=== PATIENT | male | born 1960 | race Caucasian/White ===

== ENCOUNTER 2017-05-07 12:29 | Inpatient (IN) | payer OTHER ==
[~2017-05-07] VITALS: Ht 188 cm; Wt 119.3 kg
--- OUTSIDE RECORDS SUMMARY | ~2017-05-07 | XMS ---
Demographics + + + | Address | [address] | | | [address] | | | [place] [address] | + + + | Preferred Language | Unknown | + + + | Marital Status | Unknown | + + + | Scientology Affiliation | Unknown | + + + | Race | Unknown | + + + | Ethnic Group | Unknown | + + + Author + + + | Author | [facility] | + + + | Organization | [facility] | + + + | Address | [address] | | | [place] [address] | + + + | Phone | | + + + Care Team Providers + + + + | Care Raw Juice Weigher Name | Role | Phone | + + + + Unavailable | Unavailable | + + + + PROBLEMS +---------+ + + +--------+ + + | Type | Condition | ICD9-CM | [id number] | Onset | Condition | SNOMED | | | | Code | Code | Dates | Status | Code | +---------+ + + +--------+ + + | Problem | Hyperlipid | | E78.5 | | Active | [id number] | | | emia | | | | | | +---------+ + + +--------+ + + | Problem | Type 2 | E11.40 | | | Active | [id number] | | | diabetes | | | [...] | | I10 | | Active | 29716820 | | | (primary) | | | [...]
--- OUTSIDE RECORDS SUMMARY | ~2017-05-07 | XMS ---
Demographics + + + | Address | [address] | | | [address] | | | [place] [address] | + + + | Preferred Language | Unknown | + + + | Marital Status | Unknown | + + + | Samaritan Affiliation | Unknown | + + + | Race | Unknown | + + + | Ethnic Group | Unknown | + + + Author + + + | Author | [facility] | + + + | Organization | [facility] | + + + | Address | [address] | | | [place] [address] | + + + | Phone | | + + + Care Team Providers + + + + | Care Ticker Maintainer Name | Role | Phone | + + + + Unavailable | Unavailable | + + + + PROBLEMS +---------+ + + +--------+ + + | Type | Condition | ICD9-CM | [id number] | Onset | Condition | SNOMED | | | | Code | Code | Dates | Status | Code | +---------+ + + +--------+ + + | Problem | Hyperlipid | | E78.5 | | Active | [id number] | | | emia | | | | | | +---------+ + + +--------+ + + | Problem | Type 2 | E11.40 | | | Active | [id number] | | | diabetes | | | [...] | | I10 | | Active | 23216098 | | | (primary) | | | [...]
--- OUTSIDE RECORDS SUMMARY | ~2017-05-07 | XMS ---
Demographics + + + | Address | [address] | | | [address] | | | [place] [address] | + + + | Preferred Language | Unknown | + + + | Marital Status | Unknown | + + + | Latter-Day Affiliation | Unknown | + + + | Race | Unknown | + + + | Ethnic Group | Unknown | + + + Author + + + | Author | [facility] | + + + | Organization | [facility] | + + + | Address | [address] | | | [place] [address] | + + + | Phone | | + + + Care Team Providers + + + + | Care Ceramic Tile Installer Name | Role | Phone | + + + + Unavailable | Unavailable | + + + + PROBLEMS +---------+ + + +--------+ + + | Type | Condition | ICD9-CM | [id number]-WN | Onset | Condition | SNOMED | | | | Code | Code | Dates | Status | Code | +---------+ + + +--------+ + + | 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 | | | Active | [id number] | | | erotic | | | | | | | | cardiovasc | | | | | | | | ular | | | | | | | | disease | | | | | | +---------+ + + +--------+ + + | Problem | Hyperlipid | | E78.5 | | Active | 12339696 | | | emia | | | | | | +---------+ + + +--------+ + + | Problem | Type 2 | E11.40 | | | Active | 1334760864 | | | diabetes | | | [...] | | I10 | | Active | 19490379 | | | (primary) | | | | | | | | hypertensi | | | | | | | | on | | | | | | +---------+ + + +--------+ + + ALLERGIES No Information SOCIAL HISTORY Never Assessed PLAN OF CARE VITAL SIGNS MEDICATIONS Unknown Medications RESULTS No Results PROCEDURES No Known procedures IMMUNIZATIONS No Known Immunizations MEDICAL (GENERAL) HISTORY + + + + | Type | Description | Date | + + + + | Medical History | copd | | + + + + | Medical History | afib | | + + + + | Medical History | chronic back pain | | + + + + | Medical History | neuropathy | | + + + + | Medical History | conjestive heart faiulue | | + + + + | Medical History | diabetes | | + + + + | Medical History | diabetic neuropathy | | + + + + | Hospitalization History | conjestive heart failure | apr 2016 | + + + + | Hospitalization History | pneumonia | mar 2016 | + + + + | Hospitalization History | ER visit for high blood | Dec 08 2016 | | | pressure; HR was High. | | + + + +"
--- OUTSIDE RECORDS SUMMARY | ~2017-05-07 | XMS ---
Demographics + + + | Address | [address] | | | [address] | | | [place] [address] | + + + | Preferred Language | Unknown | + + + | Marital Status | Unknown | + + + | Mu-Ism Affiliation | Unknown | + + + | Race | Unknown | + + + | Ethnic Group | Unknown | + + + Author + + + | Author | [facility] | + + + | Organization | [facility] | + + + | Address | [address] | | | [place] [address] | + + + | Phone | | + + + Care Team Providers + + + + | Care Us Marketing Director Name | Role | Phone | + + + + Unavailable | Unavailable | + + + + PROBLEMS +---------+ + + +--------+ + + | Type | Condition | ICD9-CM | [id number] | Onset | Condition | SNOMED | | | | Code | Code | Dates | Status | Code | +---------+ + + +--------+ + + | Problem | Hyperlipid | | E78.5 | | Active | [id number] | | | emia | | | | | | +---------+ + + +--------+ + + | Problem | Type 2 | E11.40 | | | Active | 1239071194 | | | diabetes | | | [...] | | I10 | | Active | 78349047 | | | (primary) | | | | | | | | hypertensi | | | | | | | | on | | | | | | +---------+ + + +--------+ + + ALLERGIES Unknown Allergies SOCIAL HISTORY No smoking Hx information available PLAN OF CARE VITAL SIGNS MEDICATIONS + + +---------+ + + + +--------+ | Medicati | Instruct | Dosage | Frequenc | Start | End Date | Duration | Status | | on | ions | | y | Date | | | | + + +---------+ + + + +--------+ | Pravasta | orally | one tab | 24h | 07 Gomez, | | 30 | Active | | tin 20 | daily | | | 2017 | | | | | mg | | | | | | | | + + +---------+ + + + +--------+ RESULTS No Results PROCEDURES No Known procedures IMMUNIZATIONS No Known Immunizations"
--- OUTSIDE RECORDS SUMMARY | ~2017-05-07 | XMS ---
Demographics + + + | Address | [address] | | | [address] | | | [place] [address] | + + + | Preferred Language | Unknown | + + + | Marital Status | Unknown | + + + | Adventism Affiliation | Unknown | + + + | Race | Unknown | + + + | Ethnic Group | Unknown | + + + Author + + + | Author | [facility] | + + + | Organization | [facility] | + + + | Address | [address] | | | [place] [address] | + + + | Phone | | + + + Care Team Providers + + + + | Care Bounty Hunter Name | Role | Phone | + + + + Unavailable | Unavailable | + + + + PROBLEMS +---------+ + + +--------+ + + | Type | Condition | ICD9-CM | ZSU26-MH | Onset | Condition | SNOMED | | | | Code | Code | Dates | Status | Code | +---------+ + + +--------+ + + | Problem | Hypotensiv | I95.9 | | | Active | [id number] | | | e episode | | | | | | +---------+ + + +--------+ + + | 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 | | | Active | 16990238 | | | erotic | | | | | | | | cardiovasc | | | | | | | | ular | | | | | | | | disease | | | | | | +---------+ + + +--------+ + + | Problem | Essential | | I10 | | Active | 17662819 | | | (primary) | | | | | | | | hypertensi | | | | | | | | on | | | | | | +---------+ + + +--------+ + + | Problem | Hyperlipid | | E78.5 | | Active | 63145433 | | | emia | | | | | | +---------+ + + +--------+ + + | Problem | Type 2 | E11.40 | | | Active | [id number] | | | diabetes | | | | | 107 | | | mellitus | | | | | | | | with | | | | | | | | diabetic | | | | | | | | neuropathy | | | | | | +---------+ + + +--------+ + + ALLERGIES No Information SOCIAL HISTORY Never Assessed PLAN OF CARE + +---------+ | Activity | Details | + +---------+ +---+ | | +---+ + + + | Follow Up | 2 Weeks Reason:null | + + + VITAL SIGNS MEDICATIONS + + + + + + + +--------+ | Medicati | Instruct | Dosage | Frequenc | Start | End Date | Duration | Status | | on | ions | | y | Date | | | | + + + + + + + +--------+ | Gabapent | Orally | 1 tablet | 8h | | | 30 | Active | | in 800 | Three | | | | | | | | MG | times a | | | | | | | | | day | | | | | | | + + + + + + + +--------+ | Spironol | Orally | 1 tablet | 12h | | | 30 | Active | | actone | Twice a | | | | | | | | 25 MG | day | | | | | | | + + + + + + + +--------+ | GlipiZID | Orally | 1 tablet | 12h | 07 Sep, | | 30 | Active | | E 5 MG | bid | | | 2017 | | day(s) | | + + + + + + + +--------+ | Carvedil | Orally | 1 tab | 12h | | | 30 | Active | | ol 25 MG | bid | | | | | | | + + + + + + + +--------+ | Losartan | Orally | 1 tablet | 24h | | | 30 | Active | | | Once a | | | | | | | | Potassiu | day | | | | | | | | m 100 MG | | | | | | | | + + + + + + + +--------+ | Terbinaf | Orally | 1 tablet | 24h | | | | Active | | ine HCl | Once a | | | | | | | | 250 MG | day | | | | | | | + + + + + + + +--------+ | Pacerone | Orally | 1 tablet | 24h | | | | Active | | 400 MG | Once a | | | | | | | | | day | | | | | | | + + + + + + + +--------+ | Pepto-Bi | | | | | | | Active | | smol | | | | | | | | + + + + + + + +--------+ | Potassiu | Orally | 1 tablet | 12h | | | 30 | Active | | m | Twice a | with | | | | | | | Chloride | day | food | | | | | | | 10 MEQ | | | | | | | | + + + + + + + +--------+ | Amlodipi | Orally | 1 tablet | 24h | | | 30 | Active | | ne | Once a | | | | | | | | Besylate | day | | | | | | | | 5 MG | | | | | | | | + + + + + + + +--------+ | Pravasta | orally | one tab | 24h | 07 Gomez, | | 30 | Active | | tin 20 | daily | | | 2017 | | | | | mg | | | | | | | | + + + + + + + +--------+ | Furosemi | Orally | 1 tablet | 24h | | | 30 | Active | | de 40 MG | Once a | | | | | | | | | day | | | | | | | + + + + + + + +--------+ | Lomotil | Orally q | 1 tablet | | 19 November, | | 5d | Active | | 2.5-0.02 | 4hr prn | as | | 2016 | | | | | 5 MG | | needed | | | | | | | | diarrhea | | | | | | | + + + + + + + +--------+ | Eliquis | Orally q | 1 tablet | | | | 30 | Active | | 5 mg | day | | | | | | | + + + + + + + +--------+ RESULTS No Results [...]
--- OUTSIDE RECORDS SUMMARY | ~2017-05-07 | XMS ---
Demographics + + + | Address | [address] | | | [address] | | | [place] [address] | + + + | Preferred Language | Unknown | + + + | Marital Status | Unknown | + + + | Sikh Affiliation | Unknown | + + + | Race | Unknown | + + + | Ethnic Group | Unknown | + + + Author + + + | Author | [facility] | + + + | Organization | [facility] | + + + | Address | [address] | | | [place] [address] | + + + | Phone | | + + + Care Team Providers + + + + | Care Occupational Therapy Department Chair Name | Role | Phone | + + + + Unavailable | Unavailable | + + + + PROBLEMS +---------+ + + +--------+ + + | Type | Condition | ICD9-CM | [id number] | Onset | Condition | SNOMED | | | | Code | Code | Dates | Status | Code | +---------+ + + +--------+ + + | 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 | | | Active | [id number] | | | erotic | | | | | | | | cardiovasc | | | | | | | | ular | | | | | | | | disease | | | | | | +---------+ + + +--------+ + + | Problem | Hyperlipid | | E78.5 | | Active | 76982829 | | | emia | | | | | | +---------+ + + +--------+ + + | Problem | Type 2 | E11.40 | | | Active | [id number] | | | diabetes | | | [...] | | I10 | | Active | 80229941 | | | (primary) | | | | | | | | hypertensi | | | | | | | | on | | | | | | +---------+ + + +--------+ + + ALLERGIES No Known Allergies SOCIAL HISTORY Never Assessed PLAN OF CARE + +---------+ | Activity | Details | + +---------+ +---+ | | +---+ + + + | Follow Up | 2 Months Reason:null | + + + VITAL SIGNS + + + + | Height | 72 in | 2017-03-20 | + + + + | Weight | 269.8 lbs | 2017-03-20 | + + + + | BMI | 36.59 kg/m2 | 2017-03-20 | + + + + | Temperature | 97.8 degrees Fahrenheit | 2017-03-20 | + + + + | Heart Rate | 64 /min | 2017-03-20 | + + + + | Blood pressure systolic | 149 mm Hg | 2017-03-20 | + + + + | Blood pressure diastolic | 76 mm Hg | 2017-03-20 | + + + + MEDICATIONS + + + + + + [...] orally | one tab | 24h | Dec, | | 30 | Active | | [...] + + + + + +--------+ | Hydrocod | Orally | 5 ml as | 6h | | | | Active | | one-Acet | every 6 | needed | | | | | | | aminophe | hrs | | | | | | | | n 10-325 | | | | | | | | | MG | | | | | | [...] + + + + + +--------+ | Metformi | Orally | 1 tablet | 12h | | | 30 | Active | | n HCl | Twice a | with | | | | | | | 1000 MG | day | meals | | | | | | + [...]
--- OUTSIDE RECORDS SUMMARY | ~2017-05-07 | XMS ---
Demographics + + + | Address | [address] | | | [address] | | | [place] [address] | + + + | Preferred Language | Unknown | + + + | Marital Status | Unknown | + + + | Synagogue Affiliation | Unknown | + + + | Race | Unknown | + + + | Ethnic Group | Unknown | + + + Author + + + | Author | [facility] | + + + | Organization | [facility] | + + + | Address | [address] | | | [place] [address] | + + + | Phone | | + + + Care Team Providers + + + + | Care Guide Cruise Name | Role | Phone | + + + + Unavailable | Unavailable | + + + + PROBLEMS +---------+ + + +--------+ + + | Type | Condition | ICD9-CM | [id number] | Onset | Condition | SNOMED | | | | Code | Code | Dates | Status | Code | +---------+ + + +--------+ + + | Problem | Hyperlipid | | E78.5 | | Active | [id number] | | | emia | | | | | | +---------+ + + +--------+ + + | Problem | Type 2 | E11.40 | | | Active | [id number] | | | diabetes | | | [...] | | I10 | | Active | 56121355 | | | (primary) | | | | | | | | hypertensi | | | | | | | | on | | | | | | +---------+ + + +--------+ + + ALLERGIES + + + + +---------+ | Substance | Reaction | Event Type | Date | Status | + + + + +---------+ | DerrickKLaura. | Unknown | Non Drug | Dec, | Unknown | | | | Allergy | | | + + + + +---------+ SOCIAL HISTORY No smoking Hx information available PLAN OF CARE + +---------+ | Activity | Details | + +---------+ +---+ | | +---+ + + + | Follow Up | 3 Months Reason:null | + + + VITAL SIGNS + + + + | Height | 72 in | 2016-12-18 | + + + + | Weight | 267.4 lbs | 2016-12-18 | + + + + | BMI | 36.26 kg/m2 | 2016-12-18 | + + + + | Temperature | 97.9 degrees Fahrenheit | 2016-12-18 | + + + + | Heart Rate | 65 /min | 2016-12-18 | + + + + | Blood pressure systolic | 150 mm Hg | 2016-12-18 | + + + + | Blood pressure diastolic | 79 mm Hg | 2016-12-18 | + + + + MEDICATIONS + [...] 1 tablet | 12h | | | | Active | | actone | Twice a | | | | | | | | 25 MG | day | | | | | | | + + + + + + + +--------+ | Eliquis | | 1 tablet | | | | | Active | | 5 mg | | | | | | | | + + + + + + + +--------+ | Carvedil | | | | | | | Active | | ol 25 MG | | | | | | [...] | | | | Active | | de 40 MG [...] | | | | Active | | ne | Once [...] | | | | Active | | | Once a [...] | 4hr prn | as | | 2017 | | | | | 5 MG [...] + + +--------+ RESULTS No Results PROCEDURES + + + + + | Procedure | Date Ordered | Related Diagnosis | Body Site | + + + + + | Est Level III | December 18, 2016 | | | | Intermediate | | | | + + + + + IMMUNIZATIONS No Known Immunizations"
--- OUTSIDE RECORDS SUMMARY | ~2017-05-07 | XMS ---
Demographics + + + | Address | [address] | | | [address] | | | [place] [address] | + + + | Preferred Language | Unknown | + + + | Marital Status | Unknown | + + + | Gnosticism Affiliation | Unknown | + + + | Race | Unknown | + + + | Ethnic Group | Unknown | + + + Author + + + | Author | [facility] | + + + | Organization | [facility] | + + + | Address | [address] | | | [place] [address] | + + + | Phone | | + + + Care Team Providers + + + + | Care Can Reconditioner Name | Role | Phone | + + + + Unavailable | Unavailable | + + + + PROBLEMS +---------+ + + +--------+ + + | Type | Condition | ICD9-CM | [id number] | Onset | Condition | SNOMED | | | | Code | Code | Dates | Status | Code | +---------+ + + +--------+ + + | Problem | Hyperlipid | | E78.5 | | Active | [id number] | | | emia | | | | | | +---------+ + + +--------+ + + | Problem | Type 2 | E11.40 | | | Active | [id number] | | | diabetes | | | [...] | | I10 | | Active | 56117852 | | | (primary) | | | [...]
--- OUTSIDE RECORDS SUMMARY | ~2017-05-07 | XMS ---
Demographics + + + | Address | [address] | | | [address] | | | [place] [address] | + + + | Preferred Language | Unknown | + + + | Marital Status | Unknown | + + + | Jehovah'S Witness Affiliation | Unknown | + + + | Race | Unknown | + + + | Ethnic Group | Unknown | + + + Author + + + | Author | [facility] | + + + | Organization | [facility] | + + + | Address | [address] | | | [place] [address] | + + + | Phone | | + + + Care Team Providers + + + + | Care Electromechanical Inspector Name | Role | Phone | + + + + Unavailable | Unavailable | + + + + PROBLEMS +---------+ + + +--------+ + + | Type | Condition | ICD9-CM | KGO90-FP | Onset | Condition | SNOMED | | | | Code | Code | Dates | Status | Code | +---------+ + + +--------+ + + | 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 | | | Active | 34152469 | | | erotic | | | | | | | | cardiovasc | | | | | | | | ular | | | | | | | | disease | | | | | | +---------+ + + +--------+ + + | Problem | Hyperlipid | | E78.5 | | Active | 60108834 | | | emia | | | | | | +---------+ + + +--------+ + + | Problem | Type 2 | E11.40 | | | Active | 2815700303 | | | diabetes | | | [...] | | I10 | | Active | 47316366 | | | (primary) | | | [...]
--- OUTSIDE RECORDS SUMMARY | ~2017-05-07 | XMS ---
Demographics + + + | Address | [address] | | | [address] | | | [place] [address] | + + + | Preferred Language | Unknown | + + + | Marital Status | Unknown | + + + | Episcopal Affiliation | Unknown | + + + | Race | Unknown | + + + | Ethnic Group | Unknown | + + + Author + + + | Author | [facility] | + + + | Organization | [facility] | + + + | Address | [address] | | | [place] [address] | + + + | Phone | | + + + Care Team Providers + + + + | Care Aircraft Refueller Name | Role | Phone | + + + + Unavailable | Unavailable | + + + + PROBLEMS +---------+ + + +--------+ + + | Type | Condition | ICD9-CM | KWL50-KI | Onset | Condition | SNOMED | | | | Code | Code | Dates | Status | Code | +---------+ + + +--------+ + + | Problem | Hyperlipid | | E78.5 | | Active | 62188138 | | | emia | | | | | | +---------+ + + +--------+ + + | Problem | Type 2 | E11.40 | | | Active | 6606892095 | | | diabetes | | | [...] | | I10 | | Active | 52926042 | | | (primary) | | | [...]
[~2017-05-07 12:29] MED LIST: ALDACTONE25 MG PO; COREG25 MG PO; COZAAR100 MG PO; ELIQUIS5 MG PO; GABAPENTIN800 MG PO; GLUCOPHAGE500 MG PO; HYDROCODON-ACE1 EAC8 PO; KLOR-CON SPRIN10 MEQ PO; LASIX20 MG PO; NORVASC5 MG PO; PACERONE400 MG PO; PROMETHAZINE HC25 M1 PO
[2017-05-07] MEDS ORDERED: CARBIDOPA-LEVO1 EACH PO (12:56)
[2017-05-07] MEDS ORDERED: PRAVACHOL20 MG PO (12:57)
[2017-05-07] MEDS ORDERED: ROBAXIN500 MG PO (13:00)
--- NOTE | 2017-05-07 17:22 | EKG ---
[facility] [address] [facility] [place] [address] Signed Atrial fibrillation with rapid ventricular response Right bundle branch block Inferior infarct , age undetermined Abnormal ECG When compared with ECG of 08-DEC-2016 08:26, Inferior infarct is now present T wave inversion less evident in Anterior leads Confirmed by QUINTON SAUCEDO MD ([id number]) on 05/07/2017 5:22:19 PM Electronically Signed By: QUINTON SAUCEDO MD 05/07/17 1722 PATIENT NAME: CHAVA SHANE MARYSOL Electrocardiogram DATE OF : 58 PHYSICIAN: QUINTON SAUCDEO MD REPORT #: [id number] REPORT IS CONFIDENTIAL AND NOT TO BE RELEASED WITHOUT AUTHORIZATION
[2017-05-07] MEDS ORDERED: GLUCOTROL5 MG PO (17:43)
--- NOTE | 2017-05-08 16:03 | EKG ---
[facility] [address] [facility] [place] [address] Signed Atrial fibrillation Left axis deviation Right bundle branch block Abnormal ECG When compared with ECG of 07-MAY-2017 12:38, No significant change was found Confirmed by QUINTON SAUCEDO MD ([id number]) on 05/08/2017 4:02:44 PM Electronically Signed By: QUINTON SAUCEDO MD 05/08/17 1603 PATIENT NAME: CHAVA SHANE Electrocardiogram DATE OF : 58 PHYSICIAN: QUINTON SAUCEDO MD REPORT #: [id number] REPORT IS CONFIDENTIAL AND NOT TO BE RELEASED WITHOUT AUTHORIZATION
[2017-05-11] MEDS ORDERED: CEFPODOXIME PR200 MG PO (11:40)
[2017-05-11] MEDS ORDERED: CARDIZEM CD180 MG PO (11:41)
== END 2017-05-11 13:06 | disposition home or self-care (01) | DRG 193 ==
LOC: ED 12:29 → MS 14:46
PROVIDERS: ADMIT Internal Medicine
DX: J13 Pneumonia due to Streptococcus pneumoniae (principal); J96.01 Acute respiratory failure with hypoxia; J44.0 Chronic obstructive pulmonary disease with (acute) lower respiratory infection; I48.0 Paroxysmal atrial fibrillation; I50.9 Heart failure, unspecified; E11.42 Type 2 diabetes mellitus with diabetic polyneuropathy; G25.81 Restless legs syndrome; I25.10 Atherosclerotic heart disease of native coronary artery without angina pectoris; I95.9 Hypotension, unspecified
CPT/HCPCS: 36415; 71010; 80048; 80053; 83605; 83735; 84484; 85025; 87040; 93005; 93010; 94640; 94761; 94762; 96374; 96375; 99285; J0456; J0696; J2405; J7030

== ENCOUNTER 2017-08-22 02:04 | Emergency (ER) | payer OTHER ==
[~2017-08-22] VITALS: Ht 188 cm; Wt 121.6 kg
[~2017-08-22 02:04] MED LIST changes: +CARBIDOPA-LEVO1 EACH PO; +CARDIZEM CD180 MG PO; +CEFPODOXIME PR200 MG PO; +GLUCOTROL5 MG PO; -LASIX20 MG PO; +LASIX40 MG PO; +PRAVACHOL20 MG PO; +ROBAXIN500 MG PO
[2017-08-22] MEDS ORDERED: NORCO 5-325 TA1 EACH PO (02:49)
[2017-08-22] MEDS ORDERED: AMLODIPINE BESYL5 MG PO (02:50)
[2017-08-22] MEDS ORDERED: POTASSIUM CHLO20 ME1 PO (03:53)
--- NOTE | 2017-08-23 17:48 | EKG ---
[facility] [address] [facility] [place] [address] Signed Atrial fibrillation with rapid ventricular response with premature ventricular or aberrantly conducted complexes Left axis deviation Right bundle branch block Abnormal ECG When compared with ECG of 08-MAY-2017 07:02, No significant change was found Confirmed by TAWANDA CELESTIN MD ([id number]) on 08/23/2017 5:48:11 PM Electronically Signed By: TAWANDA CELESTIN MD 08/23/17 1748 PATIENT NAME: SHANECHAVA MARYSOL Electrocardiogram DATE OF : 58 PHYSICIAN: TAWANDA CELESTIN MD REPORT #: [id number] REPORT IS CONFIDENTIAL AND NOT TO BE RELEASED WITHOUT AUTHORIZATION
[2017-11-11] MEDS ORDERED: COUMADIN2.5 MG PO (14:58)
[2017-11-11] MEDS ORDERED: FLOMAX0.4 MG PO (15:18)
[2017-11-11] MEDS ORDERED: ZESTRIL5 MG PO (15:18)
== END 2017-08-22 05:11 | disposition home or self-care (01) ==
LOC: ED 02:04
DX: J20.9 Acute bronchitis, unspecified (principal); I48.91 Unspecified atrial fibrillation; I11.0 Hypertensive heart disease with heart failure; I50.9 Heart failure, unspecified; J44.9 Chronic obstructive pulmonary disease, unspecified; E87.6 Hypokalemia; E11.40 Type 2 diabetes mellitus with diabetic neuropathy, unspecified; Z87.891 Personal history of nicotine dependence; Z79.899 Other long term (current) drug therapy; Z79.82 Long term (current) use of aspirin
CPT/HCPCS: 71046; 80053; 83880; 84484; 85025; 85379; 87502; 93005; 93010; 96365; 96375; 99284; J2930; J3480

== ENCOUNTER 2017-09-10 06:54 | Day surgery (SDC) | payer OTHER ==
[~2017-09-10] VITALS: Ht 188 cm; Wt 118.4 kg
[~2017-09-10 06:54] MED LIST changes: +AMLODIPINE BESYL5 MG PO; +NORCO 5-325 TA1 EACH PO; +POTASSIUM CHLO20 ME1 PO
--- NOTE | 2017-09-10 09:21 | NUR ---
[facility] SLEEPY WITH NO C/O'S. ABD SOFT. 0900 PT AWAKE SIPPING ON WATER. BLOOD SUGAR 94. 0910 DC INSTRUCTIONS GIVEN. PT TO ROOM 14 IN TO AWAIT RIDE HOME.
--- NOTE | 2017-09-10 13:31 | NUR ---
PT ALERT, ORIENTED AND SUPPORTED BY HIS . STAFF SHARED WITH ME THAT PT IS UNHAPPY TO BE HERE, AND SOMEWHAT DIFFICULT TO DEAL WITH. PREP WAS NOT PLEASANT AND STRUGGLING TO SEE WHY HE IS HERE. AFTER A LITTLE DISCUSSION PT I DISCOVERED PT REALLY WAS JUST SCARED. EXPLAINED MORE IN DETAIL WHAT TO EXPECT AND RN DANIELLE CAME IN AND WAS ABLE TO ANSWER SOME QUESTINS HE HAD. MADE A HUGE DIFFERENCE IN HIM, AND PT REQUESTED PRAYER. BEFORE I LEFT,PT WAS LAUGHING AND SMILING A LITTLE BIT ANYWAY.
--- NOTE | 2017-09-11 07:25 | EKG ---
[facility] [address] [facility] [place] [address] Signed Sinus bradycardia Left axis deviation Right bundle branch block Abnormal ECG When compared with ECG of 22-AUG-2017 02:09, Sinus rhythm has replaced Atrial fibrillation Vent. rate has decreased BY 64 BPM T wave inversion no longer evident in Anterior leads Confirmed by QUINTON SAUCEDO MD ([id number]) on 09/11/2017 7:25:13 AM Electronically Signed By: QUINTON SAUCEDO MD 09/11/17 0725 PATIENT NAME: SHANECHAVA MARYSOL Electrocardiogram DATE OF : 58 PHYSICIAN: QUINTON SAUCEDO MD REPORT #: [id number] REPORT IS CONFIDENTIAL AND NOT TO BE RELEASED WITHOUT AUTHORIZATION
--- NOTE | 2017-09-19 08:29 | OR ---
[facility] [address], [place] [address] Signed DATE OF OPERATION: 09/10/2017 SURGEON: Teofilo Iverson MD PREOPERATIVE DIAGNOSES: 1. Rectal bleeding. 2. Guaiac-positive stool. 3. Anticoagulation. POSTOPERATIVE DIAGNOSES: 1. Moderate external hemorrhoids. 2. Minimal internal hemorrhoids. 3. A 5 mm polyp, proximal transverse colon. 4. A 5 mm polyp at 30 cm. 5. A 3 mm polyp at 18 cm. PROCEDURE: Colonoscopy with hot biopsy. ESTIMATED BLOOD LOSS: None. INDICATIONS: Kavin is a 57-year-old, obese, diabetic gentleman, who has had trouble with rectal bleeding. He has been on Eliquis because of his paroxysmal atrial fibrillation. To his knowledge, there is no pain around the anus or any swelling around the anus. Of course, the stool came back guaiac-positive. He had been asked to see me for a colonoscopy. He said he has never had a previous colonoscopy. There is no family history of colon cancer or polyps. In addition, he is awaiting his study for his sleep apnea and from what we can see today he is going to need a CPAP mask. He has also had a previous OH with congestive heart failure, hypertension, and his paroxysmal atrial fibrillation. 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 In the meantime, he said he is having angina twice a week. In the office, I gave him a pamphlet on colonoscopy and we looked at that together along with the risks including, but not limited to, gas bloating, crampy abdominal pain, bleeding, perforation, requiring surgery, and missed diagnosis. We also discussed the need for IV conscious sedation. Given his ASA 4 classification, we asked that an anesthesia provider help us with increased monitoring and sedation with propofol. He had expressed understanding and wished to proceed. PROCEDURE NOTE: Electronically Signed By: TEOFILO IVERSON MD 09/19/17 0829 PATIENT NAME: KAVIN SHANE OPERATIVE REPORT DATE OF : 58 REPORT #: [id number] PHYSICIAN: TEOFILO IVERSON MD PCP: FRANK EDWARDS REPORT IS CONFIDENTIAL AND NOT TO BE RELEASED WITHOUT AUTHORIZATION [facility] [address], [place] [address] Signed Kavin was taken into our endoscopy suite and placed in the left lateral decubitus position. He was given IV sedation with Versed and fentanyl. A digital rectal exam was performed and he does have moderate beefy external hemorrhoids. After this, the adult colonoscope was introduced and advanced all around into the cecum under direct visualization of the camera without difficulty. His prep was good. The scope was then slowly withdrawn. The above-mentioned polyps were removed with the help of hot biopsy forceps. Once in the rectum, the scope had been retroflexed and he does have just very minimal internal hemorrhoid tissue. Gas was then suctioned out and the colonoscope removed. Kavin tolerated the procedure quite well. RECOMMENDATIONS: I will see Kavin back in my office in 7 to 14 days to review his results. We will have him resume his Eliquis in one week. Teofilo Iverson MD ALB/MODL /[id number] cc: MD Elli Zhang, MD Teofilo Iverson, SHY Swartz Copies: ITZ ROWE MD,ELLI IVERSON,FRANK MOONEY MD ~ Electronically Signed By: TEOFILO IVERSON MD 09/19/17 0829 PATIENT NAME: KAVIN SHANE OPERATIVE REPORT DATE OF : 58 REPORT #: [id number] PHYSICIAN: TEOFILO IVERSON MD PCP: FRANK EDWARDS REPORT IS CONFIDENTIAL AND NOT TO BE RELEASED WITHOUT AUTHORIZATION
[2017-11-11] MEDS ORDERED: COUMADIN2.5 MG PO (14:58)
[2017-11-11] MEDS ORDERED: ZESTRIL5 MG PO (15:18)
[2017-11-11] MEDS ORDERED: FLOMAX0.4 MG PO (15:18)
== END 2017-09-10 09:10 | disposition home or self-care (01) ==
LOC: OPS 06:54 → DS 06:54
PROVIDERS: Colon & Rectal Surgery
PROC: 0DBL8ZX Excision of Transverse Colon, Via Natural or Artificial Opening Endoscopic, Diagnostic (ICD-10-PCS; 2017-09-10)
PROC: 0DBN8ZX Excision of Sigmoid Colon, Via Natural or Artificial Opening Endoscopic, Diagnostic (ICD-10-PCS; principal; 2017-09-10 07:45)
DX: D12.5 Benign neoplasm of sigmoid colon (principal); K63.5 Polyp of colon; K64.4 Residual hemorrhoidal skin tags; K64.8 Other hemorrhoids; I48.91 Unspecified atrial fibrillation; J44.9 Chronic obstructive pulmonary disease, unspecified; E11.40 Type 2 diabetes mellitus with diabetic neuropathy, unspecified; M54.9 Dorsalgia, unspecified; G89.29 Other chronic pain; F17.220 Nicotine dependence, chewing tobacco, uncomplicated; G47.30 Sleep apnea, unspecified; J18.9 Pneumonia, unspecified organism; Z79.84 Long term (current) use of oral hypoglycemic drugs; Z79.899 Other long term (current) drug therapy; Z79.01 Long term (current) use of anticoagulants
CPT/HCPCS: 88305; 93005; 93010; J2250; J2704; J3010; J7120

== ENCOUNTER 2017-09-30 11:09 | Emergency (ER) | payer OTHER ==
[~2017-09-30] VITALS: Ht 188 cm; Wt 118.4 kg
[2017-09-30] MEDS ORDERED: SPIRONOLACTONE25 MG PO (11:25)
--- OUTSIDE RECORDS SUMMARY | 2017-09-30 13:19 | XMS ---
Demographics + + + | Address | [address] | | | [address] | | | [place] [address] | + + + | Preferred Language | Unknown | + + + | Marital Status | Unknown | + + + | Confucianist Affiliation | Unknown | + + + | Race | Unknown | + + + | Ethnic Group | Unknown | + + + Author + + + | Author | [facility] | + + + | Organization | [facility] | + + + | Address | [address] | | | [place] [address] | + + + | Phone | | + + + Care Team Providers + + + + | Care Telephone Station Repairer Name | Role | Phone | + + + + Unavailable | Unavailable | + + + + PROBLEMS +---------+ + + +--------+ + + | Type | Condition | ICD9-CM | [id number] | Onset | Condition | SNOMED | | | | Code | Code | Dates | Status | Code | +---------+ + + +--------+ + + | Problem | Hyperlipid | | E78.5 | | Active | [id number] | | | emia | | | | | | +---------+ + + +--------+ + + | 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
--- NOTE | 2017-09-30 13:23 | EKG ---
[facility] [address] [facility] [place] [address] Signed Atrial fibrillation with rapid ventricular response Left axis deviation Right bundle branch block Abnormal ECG When compared with ECG of 10-SEP-2017 07:23, Atrial fibrillation has replaced Sinus rhythm Vent. rate has increased BY 67 BPM T wave inversion now evident in Anterior leads Confirmed by TAWANDA CELESITN MD ([id number]) on 09/30/2017 1:22:59 PM Electronically Signed By: TAWANDA CELESTIN MD 09/30/17 1323 PATIENT NAME: CHAVA SHANE Electrocardiogram DATE OF : 58 PHYSICIAN: TAWANDA CELESTIN MD REPORT #: [id number] REPORT IS CONFIDENTIAL AND NOT TO BE RELEASED WITHOUT AUTHORIZATION
[2017-10-01] MEDS ORDERED: ROBAXIN500 MG PO (15:28)
[2017-10-01] MEDS ORDERED: ROPINIROLE HC0.25 MG PO (15:29)
[2017-11-11] MEDS ORDERED: COUMADIN2.5 MG PO (14:58)
[2017-11-11] MEDS ORDERED: ZESTRIL5 MG PO (15:18)
[2017-11-11] MEDS ORDERED: FLOMAX0.4 MG PO (15:18)
== END 2017-09-30 14:07 | disposition home or self-care (01) ==
LOC: ED 11:09
DX: I48.91 Unspecified atrial fibrillation (principal); E11.40 Type 2 diabetes mellitus with diabetic neuropathy, unspecified; I50.9 Heart failure, unspecified; J44.9 Chronic obstructive pulmonary disease, unspecified; Z79.84 Long term (current) use of oral hypoglycemic drugs; Z79.899 Other long term (current) drug therapy
CPT/HCPCS: 71045; 80053; 84484; 85025; 93005; 93010; 96374; 96375; 99283; J3010; J7120

== ENCOUNTER 2017-10-01 13:54 | Emergency (ER) | payer OTHER ==
[~2017-10-01] VITALS: Ht 188 cm; Wt 118.4 kg
[~2017-10-01 13:54] MED LIST changes: +SPIRONOLACTONE25 MG PO
[2017-10-01] MEDS ORDERED: ROBAXIN500 MG PO (15:28)
[2017-10-01] MEDS ORDERED: ROPINIROLE HC0.25 MG PO (15:29)
--- NOTE | 2017-10-02 13:34 | EKG ---
[facility] [address] [facility] [place] [address] Signed Normal sinus rhythm Left axis deviation Right bundle branch block Abnormal ECG When compared with ECG of 30-SEP-2017 11:16, Sinus rhythm has replaced Atrial fibrillation Vent. rate has decreased BY 59 BPM T wave inversion no longer evident in Anterior leads Confirmed by TAWANDA CELESTIN MD ([id number]) on 10/02/2017 1:33:46 PM Electronically Signed By: TAWANDA CELESTIN MD 10/02/17 1334 PATIENT NAME: CHAVA SHANE JANELLKELLIE Electrocardiogram DATE OF : 58 PHYSICIAN: TAWANDA CELESTIN MD REPORT #: [id number] REPORT IS CONFIDENTIAL AND NOT TO BE RELEASED WITHOUT AUTHORIZATION
[2017-11-11] MEDS ORDERED: COUMADIN2.5 MG PO (14:58)
[2017-11-11] MEDS ORDERED: ZESTRIL5 MG PO (15:18)
[2017-11-11] MEDS ORDERED: FLOMAX0.4 MG PO (15:18)
== END 2017-10-01 17:02 | disposition home or self-care (01) ==
LOC: ED 13:54
DX: R07.89 Other chest pain (principal); I50.9 Heart failure, unspecified; J44.9 Chronic obstructive pulmonary disease, unspecified; E11.40 Type 2 diabetes mellitus with diabetic neuropathy, unspecified; I48.91 Unspecified atrial fibrillation; Z87.01 Personal history of pneumonia (recurrent); Z87.891 Personal history of nicotine dependence; Z79.899 Other long term (current) drug therapy
CPT/HCPCS: 71046; 80053; 83880; 84484; 85025; 93005; 93010; 96374; 99284; J2270